=== PATIENT | female | born 1990 | race Caucasian/White ===

== ENCOUNTER 2017-09-09 00:36 | Emergency (ER) | payer BC ==
[2017-09-09] MEDS ORDERED: DOCUSATE ORAL SOLN 100 MG/10 ML CUP PO STA (00:47)
--- NOTE | 2017-09-09 00:55 | ED ---
General Adult HPI - General Chief complaint: ENT Stated complaint: FB in Ear Time Seen by Provider: 09/09/17 00:44 Source: patient, RN notes reviewed Mode of arrival: ambulatory Limitations: no limitations - History of Present Illness Initial comments: 27-year-old female presents emergency department with concern there may be a Q- tip in her left ear. She's had it for the past few days she went to her doctor and they were unable to see it. She states she made an appointment with Dr. Velasquez the right ear with taken out of her ears however she cannot tolerate this irritation to Q-tip in her ear and she needs it out. She denies any fever chills cough cold Raynaud's or any other symptoms. She denies any pain. She states irritated.Patient denies any recent fever, chills, shortness of breath, chest pain, back pain, abdominal pain, nausea vomiting, numbness or tingling, dysuria or hematuria, constipation or diarrhea, headaches or visual changes, or any other current symptoms. - Related Data Allergies Allergy/AdvReac Type Severity Reaction Status Date / Time No Known Allergies Allergy Verified 09/09/17 00:42 Review of Systems ROS Statement: Those systems with pertinent positive or pertinent negative responses have been documented in the HPI. ROS Other: All systems not noted in ROS Statement are negative. Past Medical History Past Medical History: No Reported History History of Any Multi-Drug Resistant Organisms: None Reported Past Surgical History: Tubal Ligation Additional Past Surgical History / Comment(s): . Past Psychological History: No Psychological Hx Reported Smoking Status: Current every day smoker Past Alcohol Use History: Occasional Past Drug Use History: None Reported General Exam Limitations: no limitations General appearance: alert, in no apparent distress Eye exam: Present: normal appearance, PERRL, EOMI. Absent: scleral icterus, conjunctival injection, periorbital swelling ENT exam: Present: normal exam, mucous membranes moist, normal external ear exam. Absent: TM's normal bilaterally (Unable to visualize due to bilateral serum impaction) Neck exam: Present: normal inspection. Absent: tenderness, meningismus, lymphadenopathy Respiratory exam: Present: normal lung sounds bilaterally. Absent: respiratory distress, wheezes, rales, rhonchi, stridor Cardiovascular Exam: Present: regular rate, normal rhythm, normal heart sounds. Absent: systolic murmur, diastolic murmur, rubs, gallop, clicks Neurological exam: Present: alert, oriented X3 Psychiatric exam: Present: normal affect, normal mood Skin exam: Present: warm, dry, intact, normal color. Absent: rash Course Vital Signs 09/09/17 00:40 Temperature 98.1 F Pulse Rate 104 H Respiratory 16 Rate Blood Pressure 141/89 O2 Sat by Pulse 100 Oximetry Procedures - Ear Wax Removal Left Ear Cerumenolytic Used: [place] Ear Canal Irrigated by: Ear Canal Irrigated With: ear cloth shearer device Ear Canal(s) Curetted: plastic scoops, other (q-tip end was removed) Results: Re-examined: some cerumen remains TM Visible: TM(s) intact, normal appearance Ear Canal: atraumatic Patient Tolerated Procedure: well Complications: no problems Medical Decision Making - Medical Decision Making 27-year-old female presents emergency department chief complaint of bilateral serum impaction. At this time the impaction was removed from the left ear partially the Q-tip head was removed and the patient did not want to extend the procedure further. She states that she'll follow up with ENT for this. This time we discussed discharge follow-up return. Questions. Patient stated that she understood and is negative plan. Discharged. Disposition Clinical Impression: Foreign body in left ear, Bilateral impacted cerumen Disposition: HOME SELF-CARE Condition: Stable Instructions: Ear Foreign Body (ED) Additional Instructions: Please use medication as discussed. Please follow up with family doctor if symptoms have not improved over the next two days. Please return to the emergency room if your symptoms increase or worsen or for any other concerns. Referrals: David Woods MD [Primary Care Provider] - 1-2 days Time of Disposition: 01:53
[2017-09-09 02:22] VITALS: BP 120/83; PULSE 74; RESP 18; TEMP 97.1
== END 2017-09-09 02:21 | disposition home or self-care (01) ==
LOC: EC 00:36
DX: T16.2XXA Foreign body in left ear, initial encounter (principal); H61.23 Impacted cerumen, bilateral; F17.200 Nicotine dependence, unspecified, uncomplicated
CPT/HCPCS: 69209; 99282

== ENCOUNTER 2018-11-13 19:19 | Emergency (ER) | payer BC ==
[2018-11-13 19:48] VITALS: TEMP 98.6
[2018-11-13 20:28] LABS: Appearance,Urine Cloudy (Clear); Bacteria,Urine Moderate /hpf; Bilirubin,Urine Negative (Negative); Blood,Urine Negative (Negative); Color,Urine Yellow; Glucose,Urine (UA) Negative (Negative); Ketones,Urine Negative (Negative); Leukocyte Esterase,Urine Large (Negative); Mucus,Urine Occasional /hpf; Nitrite,Urine Positive (Negative); PH, Urine 5.5 (5.0-8.0); Protein,Urine Trace (Negative); RBC,Urine 9 /hpf (0-5); Specific Gravity,Urine 1.018 (1.001-1.035); Squamous Epithelial Cell,Urine 18 /hpf (0-4); Urobilinogen,Urine <2.0 mg/dL (<2.0); WBC,Urine 10 /hpf (0-5)
[2018-11-13 21:20] LABS: Basophils % (A) 0 %; Eosinophils # (A) 0.2 k/uL (0-0.7); Eosinophils % (A) 2 %; HCT 43.2 % (34.0-46.0); HGB 14.2 gm/dL (11.4-16.0); Lymphocytes # (A) 2.4 k/uL (1.0-4.8); Lymphocytes % (A) 21 %; MCH 28.6 pg (25.0-35.0); MCHC 32.8 g/dL (31.0-37.0); Monocytes # (A) 0.4 k/uL (0-1.0); Monocytes % (A) 3 %; Neutrophils # (A) 8.2 k/uL (1.3-7.7); Neutrophils % (A) 72 %; Platelet Count 222 k/uL (150-450); RBC 4.96 m/uL (3.80-5.40); WBC 11.3 k/uL (3.8-10.6)
[2018-11-13 21:28] LABS: ALT 32 U/L (9-52); AST 19 U/L (14-36); Albumin 4.1 g/dL (3.5-5.0); Alkaline Phosphatase 55 U/L (38-126); Anion Gap 7 mmol/L; Blood Urea Nitrogen 11 mg/dL (7-17); Calcium 9.5 mg/dL (8.4-10.2); Carbon Dioxide 24 mmol/L (22-30); Chloride 107 mmol/L (98-107); Glucose 80 mg/dL (74-99); Potassium 4.3 mmol/L (3.5-5.1); Sodium 138 mmol/L (137-145); Total Bilirubin 0.4 mg/dL (0.2-1.3); Total Protein 6.8 g/dL (6.3-8.2)
--- NOTE | 2018-11-13 22:09 | ED ---
General Adult HPI - General Chief complaint: Abdominal Pain Stated complaint: 7 weeks & vomiting Time Seen by Provider: 11/13/18 22:09 Source: patient Mode of arrival: ambulatory Limitations: no limitations - Related Data Home Medications Medication Instructions Recorded Confirmed Cef-Qnbu-Ugwcp Acid 1 cap PO DAILY 11/13/18 11/13/18 [-U Capsule (formulary)] Previous Rx's Medication Instructions Recorded Cephalexin [Keflex] 500 mg PO Q6HR 3 Days #12 cap 11/13/18 Allergies Allergy/AdvReac Type Severity Reaction Status Date / Time No Known Allergies Allergy Verified 11/13/18 20:42 Review of Systems ROS Statement: Those systems with pertinent positive or pertinent negative responses have been documented in the HPI. ROS Other: All systems not noted in ROS Statement are negative. Past Medical History Past Medical History: No Reported History History of Any Multi-Drug Resistant Organisms: None Reported Past Surgical History: Tubal Ligation Additional Past Surgical History / Comment(s): . Past Psychological History: No Psychological Hx Reported Smoking Status: Current every day smoker Past Alcohol Use History: Occasional Past Drug Use History: None Reported General Exam Limitations: no limitations Course Vital Signs 11/13/18 11/13/18 19:44 22:35 Temperature 98.6 F 98.6 F Pulse Rate 78 70 Respiratory 20 18 Rate Blood Pressure 147/81 103/65 O2 Sat by Pulse 99 96 Oximetry Medical Decision Making - Medical Decision Making Dictation was produced using [employer] dictation software. please excuse any grammatical, word or spelling errors. Chief Complaint: 28-year-old female presents with nausea vomiting. She is allegedly 6 weeks . History of Present Illness: Patient is a 28-year-old female. She denies any medical problems. She states she had some nausea vomiting and some abdominal cramping earlier today. She was concerned for . Computed emergency department. Patient is asymptomatic at this time. She feels well. Patient isn't denies any vomiting however she still feels slightly nauseous. Patient does have an established [employer]NA[employer]. She has an appointment on the . Patient had pregnancies in the past she had abortions for them. Denies any vaginal discharge or vaginal bleeding The ROS documented in this emergency department record has been reviewed and confirmed by me. Those systems with pertinent positive or negative responses have been documented in the HPI. All other systems are other negative and/or noncontributory. PHYSICAL EXAM: General Impression: Alert and oriented x3, not in acute distress HEENT: Normocephalic atraumatic, extra-ocular movements intact, pupils equal and reactive to light bilaterally, mucous membranes moist. Cardiovascular: Heart regular rate and rhythm, S1&S2 audible, no murmurs, rubs or gallops Chest: Lungs clear to auscultation bilaterally, no rhonchi, no wheeze, no rales Abdomen: Bowel sounds present, abdomen soft, non-tender, non-distended, no organomegaly Musculoskeletal: Pulses present and equal in all extremities, no peripheral edema Motor: Power 5/5 bilaterally, no focal deficits noted Neurological: CN II-XII grossly intact, no focal motor or sensory deficits noted Skin: Intact with no visualized rashes Psych: Normal affect and mood ED course: 28-year-old female presents with nausea vomiting and abdominal cramping. She states her symptoms all spontaneously. Patient is asymptomatic at this time. Vital signs upon arrival are within acceptable limits. Patient well-appearing. Physical examination is benign. Patient refusing pelvic exam. Laboratory evaluation obtained showing no acute processes. Patient however does have some local urea on her urinalysis. Patient be given antibiotics. Labs unremarkable. Transvaginal ultrasound is negative. 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 - Lab Data Result diagrams: 11/13/18 20:58 11/13/18 20:58 Lab Results 11/13/18 11/13/18 11/13/18 Range/Units 20:09 20:58 20:58 WBC 11.3 H (3.8-10.6) k/uL RBC 4.96 (3.80-5.40) m/uL Hgb 14.2 (11.4-16.0) gm/dL Hct 43.2 (34.0-46.0) % MCV 87.0 (80.0-100.0) fL MCH 28.6 (25.0-35.0) pg MCHC 32.8 (31.0-37.0) g/dL RDW 14.0 (11.5-15.5) % Plt Count 222 (150-450) k/uL Neutrophils % 72 % Lymphocytes % 21 % Monocytes % 3 % Eosinophils % 2 % Basophils % 0 % Neutrophils # 8.2 H (1.3-7.7) k/uL Lymphocytes # 2.4 (1.0-4.8) k/uL Monocytes # 0.4 (0-1.0) k/uL Eosinophils # 0.2 (0-0.7) k/uL Basophils # 0.0 (0-0.2) k/uL Sodium 138 (137-145) mmol/L Potassium 4.3 (3.5-5.1) mmol/L Chloride 107 (98-107) mmol/L Carbon Dioxide 24 (22-30) mmol/L Anion Gap 7 mmol/L BUN 11 (7-17) mg/dL Creatinine 0.88 (0.52-1.04) mg/dL Est GFR (CKD-EPI)AfAm >90 (>60 ml/min/1.73 sqM) Est GFR (CKD-EPI)NonAf >90 (>60 ml/min/1.73 sqM) Glucose 80 (74-99) mg/dL Calcium 9.5 (8.4-10.2) mg/dL Total Bilirubin 0.4 (0.2-1.3) mg/dL AST 19 (14-36) U/L ALT 32 (9-52) U/L Alkaline Phosphatase 55 (38-126) U/L Total Protein 6.8 (6.3-8.2) g/dL Albumin 4.1 (3.5-5.0) g/dL HCG, Quant 73919.2 mIU/mL Urine Color Yellow Urine Appearance Cloudy H (Clear) Urine pH 5.5 (5.0-8.0) Ur Specific [place] 1.018 (1.001-1.035) Urine Protein Trace H (Negative) Urine Glucose (UA) Negative (Negative) Urine Ketones Negative (Negative) Urine Blood Negative (Negative) Urine Nitrite Positive H (Negative) Urine Bilirubin Negative (Negative) Urine Urobilinogen <2.0 (<2.0) mg/dL Ur Leukocyte Esterase Large H (Negative) Urine RBC 9 H (0-5) /hpf Urine WBC 10 H (0-5) /hpf Ur Squamous Epith Cells 18 H (0-4) /hpf Urine Bacteria Moderate H (None) /hpf Urine Mucus Occasional H (None) /hpf Disposition Clinical Impression: Pelvic pain affecting Disposition: HOME SELF-CARE Condition: Good Prescriptions: Cephalexin [Keflex] 500 mg PO Q6HR 3 Days #12 cap Is patient prescribed a controlled substance at d/c from ED?: No Referrals: David Woods MD [Primary Care Provider] - 1-2 days Time of Disposition: 23:02
[2018-11-13 22:13] LABS: HCG,Quantitative Serum 66102.2 mIU/mL
[2018-11-13 22:37] VITALS: BP 103/65; PULSE 70; RESP 18
--- NOTE | 2018-11-13 22:42 | US ---
EXAMINATION TYPE: Transabdominal DATE OF EXAM: 01/24/18 COMPARISON: NONE CLINICAL HISTORY: Pain. Nausea EXAM PERFORMED: Transabdominal (TA) EXAM MEASUREMENTS: GESTATIONAL AGE / DATING Physician Established: Not yet established ( weeks/ Dates by LMP: (6 weeks/4 days) EDC: 07/05/2019 Dates by First Scan: No previous this is first scan Dates by Current Scan for: (6 weeks/4 days) EDC: 07/05/2019 MATERNAL ANATOMY Uterus: 9.9 x 5.2 x 4.9 cm Left Ovary: 3.7 x 2.1 x 3.0 cm Post CDS / Adnexa: wnl Presence of free fluid: no Presence of corpus luteal cyst: Yes left ovary. Presence of subchorionic bleed: No GESTATION / SURVEY CRL: 0.71cm (6 weeks/4 days) Yolk Sac (normal less than 6mm): 4mm Heart Rate: 138 bpm Rhythm: Normal IUP: Viable IUP Beta HcG (if available): Not available at this time Viable IUP 6w4d SHAWANDA 07/05/2019 HR 138 BPM IMPRESSION: No complicating process seen. The ultrasound gestational age is 6 weeks and 4 days.
== END 2018-11-13 23:22 | disposition home or self-care (01) ==
LOC: EC 19:19
DX: O26.891 Other specified pregnancy related conditions, first trimester (principal); R10.2 Pelvic and perineal pain; O21.9 Vomiting of pregnancy, unspecified; O99.331 Smoking (tobacco) complicating pregnancy, first trimester; F17.200 Nicotine dependence, unspecified, uncomplicated; Z3A.01 Less than 8 weeks gestation of pregnancy
CPT/HCPCS: 36415; 76801; 80053; 81001; 84702; 85025; 87086; 99284

== ENCOUNTER → 2019-02-12 | Outpatient (CLI) | payer BC ==
[2019-02-13 08:32] LABS: Alpha Fetoprotein (M.O.M) 1.41; B-HCG (M.O.M.) 1.65; Gestational Age (days) 4; Human Chorionic Gonadotropin 23.2 IU/mL; Maternal Age at EDD (Yrs) 29; Smoker No; Unconjugated Estriol (M.O.M.) 1.99
== END | disposition home or self-care (01) ==
LOC: LABWHC1 10:38
PROVIDERS: ATTEND Obstetrics & Gynecology
DX: Z34.82 Encounter for supervision of other normal pregnancy, second trimester (principal)
CPT/HCPCS: 36415; 82105; 82677; 84702; 86336

== ENCOUNTER 2019-06-08 11:26 | Outpatient (CLI) | payer BC ==
[2019-06-08 12:05] VITALS: PULSE 99; RESP 16; TEMP 97
--- NOTE | 2019-06-13 16:47 | P.MSEPDOC ---
Presenting Problems - Arrival Data Date of Arrival on Unit: 06/08/19 Time of Arrival on Unit: 12:03 Mode of Transport: Ambulatory - Complaint OB-Reason for Admission/Chief Complaint: Rule Out PROM Medical History - Information : 3 Para: 0 Term: 0 : 0 Abortions: Spontaneous or Elective: 2 Number of Living Children: 0 - Gestational Age Gestational Age by SHAWANDA (wks/days): 36 Weeks and 1 Days - History Complications: GDM Review of Systems - Review of Systems Constitutional: No problems Breast: No problems ENT: No problems Cardiovascular: No problems Respiratory: No problems Gastrointestinal: No problems Genitourinary: No problems Musculoskeletal: No problems Neurological: No problems Skin: No problems Vital Signs - Temperature Temperature: 97.0 F Temperature Source: Oral - Pulse Supine Pulse Rate: 99 Pulse Assessment Method: Automatic Cuff - Respirations Respiratory Rate: 16 Oxygen Delivery Method: Room Air Medical Screen Scoring (Pre) - Cervical Exam Dilation: 1-3 cm = 1 Effacement: More than 50% = 2 - Uterine Contractions Frequency: N/A Duration: N/A Intensity: N/A - Maternal Vital Signs Maternal Temperature: N/A Signs of Preeclampsia: N/A Maternal Respirations: N/A - Maternal Trauma Maternal Trauma: N/A - Assessment - Baby A Baseline FHR: 130 Heart Rate - NICHD Category: Category I (Normal) = 0 NST: Reactive Position: N/A Station: N/A - Total Score - Baby A Total Score - Baby A: 3 - Total Score - Baby B Total Score - Baby B: 3 - Total Score - Baby C Total Score - Baby C: 3 - Level of Risk - Baby A Level of Risk - Baby A: Low (0-5) - Level of Risk - Baby B Level of Risk - Baby B: Low (0-5) - Level of Risk - Baby C Level of Risk - Baby C: Low (0-5) Physician Notification (Pre) - Physician Notified Physician Notified Date: 06/08/19 Physician Notified Time: 12:04 Physician/Practitioner Notifed:: DR JAMES New Order Received: Yes - Notification Comment Comment: PT TO DISCHARGE HOME Disposition - Disposition OB Disposition: Discharge to home Discharge Date: 06/08/19 Discharge Time: 12:05 I agree with the RN Medical Screening Exam: Yes Risk & Benefit of care provided described in d/c instruction: Yes Diagnosis: FALSE LABOR BEFORE 37 COMPLETED WEEKS OF GEST, THIRD TRI
== END 2019-06-08 12:20 | disposition home or self-care (01) ==
LOC: FBPOP 11:26
PROVIDERS: ATTEND Obstetrics & Gynecology
DX: O47.03 False labor before 37 completed weeks of gestation, third trimester (principal); Z3A.36 36 weeks gestation of pregnancy
CPT/HCPCS: 59025; 84112; 99213

== ENCOUNTER 2019-06-08 22:12 | Inpatient (IN) | payer BC ==
[2019-06-08] MEDS ORDERED: CITRIC ACID-SODIUM CITRATE 15 ML CUP PO ONE (22:58)
[2019-06-08] MEDS ORDERED: LACTATED RINGERS 1,000 ML IV ONE (22:58)
[2019-06-08] MEDS ORDERED: ceFAZolin 3 GM in SODIUM CHLORIDE 0.9% 100 ML IVPB ONE (22:58)
[2019-06-08] MEDS: LACTATED RINGERS 1,000 ML IV SCH (23:17)
[2019-06-08 23:21] LABS: Glucose,Whole Blood 91 mg/dL (75-99)
[2019-06-08 23:30] LABS: Basophils % (A) 0 %; Eosinophils # (A) 0.1 k/uL (0-0.7); Eosinophils % (A) 1 %; HGB 13.3 gm/dL (11.4-16.0); Lymphocytes # (A) 2.7 k/uL (1.0-4.8); Lymphocytes % (A) 26 %; MCH 29.3 pg (25.0-35.0); MCHC 33.3 g/dL (31.0-37.0); MCV 87.9 fL (80.0-100.0); Mean Platelet Volume 7.3; Monocytes # (A) 0.4 k/uL (0-1.0); Monocytes % (A) 4 %; Neutrophils # (A) 7.1 k/uL (1.3-7.7); Neutrophils % (A) 68 %; Platelet Count 269 k/uL (150-450); RBC 4.54 m/uL (3.80-5.40); RDW 13.4 % (11.5-15.5); WBC 10.4 k/uL (3.8-10.6)
[2019-06-08] MEDS ORDERED: KETOROLAC 30 MG/ML 1 ML VIAL ONE (23:54)
[2019-06-08] MEDS ORDERED: MORPHINE SULFATE (PF) 0.3 MG/0.3 ML SYR ONE (23:54)
[2019-06-08] MEDS ORDERED: OXYTOCIN 10 UNIT/ML 1 ML VIAL ONE (23:54)
[2019-06-08] MEDS ORDERED: NALBUPHINE 10 MG/ML (1 ML AMP) ONE (23:54)
[2019-06-08] MEDS ORDERED: ONDANSETRON 4 MG/2 ML VIAL ONE (23:54)
[2019-06-09 02:30] VITALS: BMI 40.3
[2019-06-09] MEDS ORDERED: diphenhydrAMINE 25 MG CAP PO PRN (04:10)
[2019-06-09] MEDS ORDERED: ZOLPIDEM 5 MG TAB PO PRN (04:10)
[2019-06-09] MEDS ORDERED: KETOROLAC 30 MG/ML 1 ML VIAL IVP PRN (04:10)
[2019-06-09] MEDS ORDERED: diphenhydrAMINE 50 MG CAP PO PRN (04:10)
[2019-06-09] MEDS ORDERED: diphenhydrAMINE 50 MG/ML 1 ML VIAL IVP PRN ×2 (04:10)
[2019-06-09] MEDS ORDERED: MEASLES-MUMPS-RUBELLA VACC/PF 12,500 UNIT/0.5 ML VIAL SQ ONE (04:10)
[2019-06-09] MEDS ORDERED: METOCLOPRAMIDE 5 MG/ML 2 ML VIAL IVP PRN (04:10)
[2019-06-09] MEDS ORDERED: ONDANSETRON 4 MG/2 ML VIAL IVP PRN (04:10)
[2019-06-09] MEDS ORDERED: NALOXONE 0.4 MG/ML 1 ML VIAL IV PRN (04:10)
[2019-06-09] MEDS ORDERED: ACETAMINOPHEN TAB 325 MG TAB PO PRN (04:10)
[2019-06-09] MEDS ORDERED: OXYTOCIN 20 UNITS/1000 ML NS 1,000 ML IV SCH (04:15)
[2019-06-09] MEDS: LACTATED RINGERS 1,000 ML IV SCH ×3 (07:50→20:52)
--- NOTE | 2019-06-09 10:14 | P.HPOB ---
History of Present Illness H&P Date: 06/09/19 Chief Complaint: Spontaneous rupture of membranes 29-year-old presents at 36 weeks and 3 days complaining of spontaneous rupture of membranes. Amnio sure was positive. She is maryam irregularly. She has gestational diabetes, diet controlled. Weight of the baby is over the 90th percentile and Dr. Oliveira had a conversation with the patient and with myself that this patient needed a section due to macrosomia. Review of Systems All systems: negative Constitutional: Denies chills, Denies fever Eyes: denies blurred vision, denies pain Ears, nose, mouth and throat: Denies headache, Denies sore throat Cardiovascular: Denies chest pain, Denies shortness of breath Respiratory: Denies cough Gastrointestinal: Denies abdominal pain, Denies diarrhea, Denies nausea, Denies vomiting Genitourinary: Denies dysuria, Denies hematuria Musculoskeletal: Denies myalgias Integumentary: Denies pruritus, Denies rash Neurological: Denies numbness, Denies weakness Psychiatric: Denies anxiety, Denies depression Endocrine: Denies fatigue, Denies weight change Past Medical History Past Medical History: No Reported History Additional Past Medical History / Comment(s): Obstetric history: She's had one termination and one spontaneous . This is her third . She's had care with Dr. Oliveira. Blood type is O-, antibodies negative, rub nahomi nonimmune, hepatitis B-, HIV negative, RPR nonreactive, GBS unknown. Her gestational diabetes has been controlled with diet. She's been seeing maternal medicine and getting regular ultrasounds and NSTs. History of Any Multi-Drug Resistant Organisms: None Reported Past Surgical History: Tubal Ligation Additional Past Surgical History / Comment(s): . tubes in ears Past Anesthesia/Blood Transfusion Reactions: No Reported Reaction Past Psychological History: No Psychological Hx Reported Smoking Status: Never smoker Past Alcohol Use History: Occasional Past Drug Use History: None Reported - Past Family History Mother Family Medical History: Thyroid Disorder Medications and Allergies Home Medications Medication Instructions Recorded Confirmed Type Kvb-Cqlp-Xjrbp Acid 1 cap PO DAILY 11/13/18 06/08/19 History [-U Capsule (formulary)] Allergies Allergy/AdvReac Type Severity Reaction Status Date / Time No Known Allergies Allergy Verified 06/08/19 22:23 Exam Osteopathic Statement: *. No significant issues noted on an osteopathic structural exam other than those noted in the History and Physical/Consult. Vital Signs Temp Pulse Resp BP Pulse Ox 06/09/19 03:10 98.2 F 59 L 16 100/56 98 06/09/19 02:40 59 L 16 105/62 99 06/09/19 02:10 62 16 100/59 98 06/09/19 01:55 62 16 105/57 96 06/09/19 01:40 62 16 108/56 99 06/09/19 01:25 63 16 111/53 98 06/09/19 01:10 71 16 109/56 97 06/09/19 00:55 98.4 F 77 16 106/54 99 06/08/19 23:14 98.3 F 89 16 141/73 98 06/08/19 22:25 98.3 F 89 16 141/73 98 06/08/19 22:22 98.3 F 89 16 141/73 97 Intake and Output 06/08/19 06/09/19 06/09/19 22:59 06:59 14:59 Output Total 500 Balance -500 Output: Estimated Blood Loss 500 Other: Voiding Method Indwelling Catheter Weight 127.459 kg Heart: Regular rate and rhythm Lungs: Clear to auscultation bilaterally Abdomen: Soft, nontender Extremities: Negative Homans sign Results Result Diagrams: 06/08/19 22:52 Assessment and Plan (1) macrosomia Current Visit: Yes Status: Acute Code(s): O36.60X0 - MATERNAL CARE FOR EXCESS GROWTH, UNSP TRIMESTER, UNSP SNOMED Code(s): 46991677 (2) Gestational diabetes Current Visit: Yes Status: Acute Code(s): O24.419 - GESTATIONAL DIABETES MELLITUS IN , UNSP CONTROL SNOMED Code(s): 15315623 (3) Spontaneous rupture of membranes Current Visit: Yes Status: Acute Code(s): NKK2760 - SNOMED Code(s): 046950961 Plan: 1. primary low transverse
--- NOTE | 2019-06-09 10:17 | P.OP ---
Date of Procedure: 06/09/19 Preoperative Diagnosis: 1. at 36 and 3 2. Spontaneous rupture of membranes 3. macrosomia 4. Gestational diabetes Postoperative Diagnosis: 1. at 36 and 3 2. Spontaneous rupture of membranes 3. macrosomia 4. Gestational diabetes Procedure(s) Performed: Primary low transverse Anesthesia: spinal Surgeon: [employer]: Michaelle Reyes Estimated Blood Loss (ml): 600 IV fluids (ml): 600 Urine output (ml): 200 Pathology: other (Placenta) Condition: stable Disposition: floor Operative Findings: Viable male, Apgars 9, 9, weight 7 lbs. 15 oz. normal uterus, tubes, ovaries. Description of Procedure: Patient was taken to the operating room where spinal anesthesia was found be adequate. She was prepped and draped in normal sterile fashion in dorsal supine position with a leftward tilt. Pfannenstiel skin incision was made the scalpel and carried through to the underlying layer of fascia with the scalpel. Fascia was incised in midline and carried bilaterally with the Carmichael scissors. The superior aspect of the fascial incision was grasped with [place] clamps elevated and the underlying rectus muscles dissected off with the Carmichael's. Attention was then turned to inferior aspect of same incision which in a similar fashion was grasped tented up and the underlying rectus muscles dissected off with the Carmichael's. The rectus muscles were the midline and the peritoneum was identified tented up and entered sharply with the scalpel. The incision was extended superiorly and inferiorly with good visualization of the bladder. The bladder blade was inserted and the vesicouterine peritoneum was incised the Metzenbaums then carried bilaterally and bladder flap created digitally. A low transverse incision was then made on the uterus with the scalpel. This was carried bilaterally and digital manner. 's head delivered atraumatically, nose and mouth bulb suctioned, cord clamped and cut, handed off to waiting nurses. Apgars 9,9, weight 7 lbs. 15oz. Placenta delivered manually, intact with three-vessel cord. The uterus is exteriorized and cleared of all clots and debris. The uterine incision was closed with 0 Vicryl in a running locked fashion. Second layer of the same sutures used in imbricating fashion to obtain excellent hemostasis. Bladder flap was then reapproximated using 2-0 Tyrel ryl in a running fashion. Both ovaries and tubes appeared normal. The uterus was placed back into the abdomen. The peritoneum was reapproximated using 2-0 Vicryl in a running fashion. The fascia was reapproximated using 0 Vicryl in a running fashion. The subcutaneous tissues closed with 3-0 Vicryl running fashion. The skin was closed rhoda. Patient tolerated the procedure well, sponge and instrument counts were correct times 2 and she was taken to the recovery room in stable condition.
[2019-06-09 14:33] LABS: Hemoglobin A1C 5.2 % (4.0-6.0)
--- NOTE | 2019-06-09 19:25 | P.PN ---
Progress Note - Text Progress Note Date: 06/09/19 Postoperative day 1 status post section under spinal anesthesia, and i ntrathecal morphine given for postoperative analgesia, patient doing well, there is no anesthesia related complications, patient complaining some itching earlier today , the itching improved Patient had no headache, vital signs stable , Assessment and plan= postop day 1 status post , doing well there is no anesthesia related complication.
[2019-06-09] MEDS: SENNOSIDES-DOCUSATE SODIUM 1 EACH TAB PO SCH (20:52)
[2019-06-09] MEDS ORDERED: Rhogam IMMUNE GLOBULIN 1,500 UNIT/1 ML IM ONE (21:34)
[2019-06-10] MEDS: SENNOSIDES-DOCUSATE SODIUM 1 EACH TAB PO SCH ×3 (02:45→22:55)
[2019-06-10] MEDS: LACTATED RINGERS 1,000 ML IV SCH ×3 (02:45→02:57)
[2019-06-10] MEDS: IBUPROFEN 600 MG TAB PO PRN ×3 (04:08→16:53)
[2019-06-10 07:29] LABS: Basophils % (A) 0 %; Eosinophils # (A) 0.1 k/uL (0-0.7); Eosinophils % (A) 1 %; HGB 11.7 gm/dL (11.4-16.0); Lymphocytes % (A) 16 %; MCH 29.6 pg (25.0-35.0); MCHC 33.3 g/dL (31.0-37.0); Mean Platelet Volume 7.6; Monocytes # (A) 0.6 k/uL (0-1.0); Monocytes % (A) 5 %; Neutrophils # (A) 10.2 k/uL (1.3-7.7); Neutrophils % (A) 78 %; Platelet Count 262 k/uL (150-450); RBC 3.93 m/uL (3.80-5.40); RDW 14.5 % (11.5-15.5); WBC 13.1 k/uL (3.8-10.6)
--- NOTE | 2019-06-10 09:33 | P.PNOBGPC ---
Subjective - Subjective Principal diagnosis: Status post primary low transverse postop day #1 Interval history: Patient seen and examined. Denies nausea, vomiting, chest pain, shortness of breath or calf pain. Her pain is controlled with ibuprofen. She is voiding and ambulating without difficulty. She is passing flatus and tolerating regular diet. Patient reports: Reports appetite normal, Reports voiding normally, Reports pain well controlled, Reports ambulating normally [place]: doing well Objective - Vital Signs Latest vital signs: Vital Signs Temp Pulse Resp BP Pulse Ox 06/10/19 00:00 98.7 F 83 16 104/51 97 06/09/19 20:00 98.2 F 90 16 102/62 98 06/09/19 16:00 98.0 F 73 18 96/58 06/09/19 12:00 98.5 F 89 16 118/62 Intake and Output 06/09/19 06/10/19 06/10/19 22:59 06:59 14:59 Output Total 800 Balance -800 Output: Urine 800 Other: # Voids 1 2 - Exam Lungs: bilateral: normal Chest: Normal S1, Normal S2 Extremities: Present: normal Abdomen: Present: normal appearance, soft. Absent: distention, tenderness Incision: Present: normal, dry, intact Uterus: Present: normal, firm - Labs Labs: Abnormal Lab Results - Last 24 Hours (Table) 06/10/19 Range/Units 06:23 WBC 13.1 H (3.8-10.6) k/uL Neutrophils # 10.2 H (1.3-7.7) k/uL Assessment and Plan (1) macrosomia Current Visit: Yes Status: Resolved Code(s): O36.60X0 - MATERNAL CARE FOR EXCESS GROWTH, UNSP TRIMESTER, UNSP SNOMED Code(s): 92130460 (2) Gestational diabetes Current Visit: Yes Status: Resolved Code(s): O24.419 - GESTATIONAL DIABETES MELLITUS IN , UNSP CONTROL SNOMED Code(s): 32123515 (3) Spontaneous rupture of membranes Current Visit: Yes Status: Resolved Code(s): ESI3120 - SNOMED Code(s): 291429890 (4) Status post primary low transverse section Current Visit: Yes Status: Acute Code(s): Z98.891 - HISTORY OF UTERINE SCAR FROM PREVIOUS SURGERY SNOMED Code(s): 255126073 Plan: 1. Increase ambulation 2. Continue postoperative care
--- NOTE | 2019-06-10 22:05 | P.MSEPDOC ---
Presenting Problems - Arrival Data Date of Arrival on Unit: 06/08/19 Time of Arrival on Unit: 22:46 Mode of Transport: Bed - Complaint OB-Reason for Admission/Chief Complaint: Rule Out PROM Comment: 2129 clear Medical History - Information : 3 Para: 0 Term: 0 : 0 Abortions: Spontaneous or Elective: 0 Number of Living Children: 0 - Gestational Age Gestational Age by SHAWANDA (wks/days): 36 Weeks and 2 Days - History Complications: GDM Review of Systems - Review of Systems Constitutional: No problems Breast: No problems ENT: No problems Cardiovascular: No problems Respiratory: No problems Gastrointestinal: No problems Genitourinary: No problems Musculoskeletal: No problems Neurological: No problems Skin: No problems Vital Signs - Temperature Temperature: 98.3 F Temperature Source: Oral - Pulse Right Brachial Pulse Rate: 89 Pulse Assessment Method: Automatic Cuff - Respirations Respiratory Rate: 18 Oxygen Delivery Method: Room Air O2 Sat by Pulse Oximetry: 98 - Blood Pressure Right Arm Blood Pressure: 107/61 Blood Pressure Mean: 76 Blood Pressure Source: Automatic Cuff Medical Screen Scoring (Pre) - Cervical Exam Dilation: 1-3 cm = 1 Effacement: More than 50% = 2 Membranes: Ruptured = 3 - Uterine Contractions Frequency: > or = 36 weeks =2 Duration: > 40 seconds = 2 - Maternal Vital Signs Maternal Temperature: N/A Maternal Blood Pressure: N/A Signs of Preeclampsia: N/A Maternal Respirations: N/A - Maternal Trauma Maternal Trauma: N/A - Assessment - Baby A Baseline FHR: 135 Heart Rate - NICHD Category: Category I (Normal) = 0 NST: Reactive - Total Score - Baby A Total Score - Baby A: 10 - Total Score - Baby B Total Score - Baby B: 10 - Total Score - Baby C Total Score - Baby C: 10 - Level of Risk - Baby A Level of Risk - Baby A: High (10+) - Level of Risk - Baby B Level of Risk - Baby B: High (10+) - Level of Risk - Baby C Level of Risk - Baby C: High (10+) Physician Notification (Pre) - Physician Notified Physician Notified Date: 06/08/19 Physician Notified Time: 22:52 Physician/Practitioner Notifed:: Dr Rodriguez New Order Received: Yes Disposition - Disposition OB Disposition: Admit, LDRP Suite I agree with the RN Medical Screening Exam: Yes Risk & Benefit of care provided described in d/c instruction: Yes Diagnosis: ENCOUNTER FOR FULL-TERM UNCOMPLICATED DELIVERY
[2019-06-11 00:21] VITALS: RESP 16
[2019-06-11] MEDS: IBUPROFEN 600 MG TAB PO PRN (01:38)
--- NOTE | 2019-06-11 08:51 | P.DS ---
Providers Date of admission: 06/08/19 22:46 Expected date of discharge: 06/11/19 Attending physician: Santhosh Ortiz Primary care physician: Stated None Hospital Course: Patient doing very well postop day 2. She is ambulating, voiding and tolerating her diet. She voices no complaints and is requesting discharge home today. Vital signs are stable and she is afebrile. Heart regular, lungs clear, extremities without pain. Abdomen soft and nontender. Positive bowel sounds are noted. She has had a bowel movement already. Incisions clean dry and intact. Assessment postop day 2. Plan discharged home follow up with me in 1 week. All of the discharge instructions reviewed and she is stable for discharge this time. Patient Condition at Discharge: Good Plan - Discharge Summary New Discharge Prescriptions: New Ibuprofen [Motrin] 600 mg PO Q6HR PRN #30 tab PRN Reason: Pain HYDROcodone/APAP 5-325MG [[place] 5-325] 1 tab PO Q4HR PRN #30 tab PRN Reason: Pain No Action Pkw-Qkce-Xebrw Acid [-U Capsule (formulary)] 1 cap PO DAILY Discharge Medication List Gbk-Uhfs-Zxzsu Acid [-U Capsule (formulary)] 1 cap PO DAILY 11/13/18 [History] HYDROcodone/APAP 5-325MG [[place] 5-325] 1 tab PO Q4HR PRN #30 tab 06/11/19 [Rx] Ibuprofen [Motrin] 600 mg PO Q6HR PRN #30 tab 06/11/19 [Rx] Follow up Appointment(s)/Referral(s): Santhosh Ortiz DO [Doctor of Osteopathic Medicine] - 1 Week Activity/Diet/Wound Care/Special Instructions: No heavy lifting, limit stairs and driving, and pelvic rest. If any high temperatures, heavy bleeding, or severe pain call my office Discharge Disposition: HOME SELF-CARE
[2019-06-11 09:10] VITALS: BP 112/55; PULSE 72; TEMP 97.9
== END 2019-06-11 10:45 | disposition home or self-care (01) | DRG 788 ==
LOC: FBPOP 22:12 → 4FBP 22:46
PROVIDERS: ADMIT Obstetrics & Gynecology; ATTEND Obstetrics & Gynecology
PROC: 10D00Z1 Extraction of Products of Conception, Low, Open Approach (ICD-10-PCS; principal; 2019-06-09)
DX: O36.63X0 Maternal care for excessive fetal growth, third trimester, not applicable or unspecified (principal); O24.420 Gestational diabetes mellitus in childbirth, diet controlled; O99.72 Diseases of the skin and subcutaneous tissue complicating childbirth; L29.9 Pruritus, unspecified; Z37.0 Single live birth; Z3A.36 36 weeks gestation of pregnancy; Z83.49 Family history of other endocrine, nutritional and metabolic diseases
CPT/HCPCS: 59025; 83036; 84112; 85025; 85461; 86850; 86870; 86880; 86900; 86901; 88307; 90471; 90707; 99213

== ENCOUNTER 2019-10-05 12:09 | Emergency (ER) | payer BC ==
[2019-10-05 12:21] VITALS: TEMP 98.2
[2019-10-05] MEDS ORDERED: ceFAZolin 1,000 MG VIAL (IM USE) IM STA (12:43)
[2019-10-05] MEDS ORDERED: LIDOCAINE 1% INJ 10MG/ML (20 ML MDV) SQ ONE (12:43)
--- NOTE | 2019-10-05 14:49 | ED ---
General Adult HPI - General Chief complaint: Skin/Abscess/Foreign Body Stated complaint: Abscess on breast Time Seen by Provider: 10/05/19 12:28 Source: patient, RN notes reviewed, old records reviewed Mode of arrival: ambulatory Limitations: no limitations - History of Present Illness Initial comments: 29-year-old female presents today for evaluation for concerns for an abscess of her sternum and left breast. She stated medics breath. She reports that this started to complain over the past 24-48 hours. She reports she noticed a small cystlike boil within the past week. She states she did pick at it. Patient states that she has had no fevers or chills. - Related Data Home Medications Medication Instructions Recorded Confirmed Rxr-Daes-Cxjfh Acid 1 cap PO DAILY 11/13/18 06/08/19 [-U Capsule (formulary)] Previous Rx's Medication Instructions Recorded HYDROcodone/APAP 5-325MG [[place] 1 tab PO Q4HR PRN #30 tab 06/11/19 5-325] Ibuprofen [Motrin] 600 mg PO Q6HR PRN #30 tab 06/11/19 Cephalexin [Keflex] 500 mg PO Q6HR #40 cap 10/05/19 HYDROcodone/APAP 5-325MG [[place] 1 tab PO Q6HR PRN #10 tab 10/05/19 5-325] Sulfamethox-Tmp 800-160Mg [Bactrim 2 tab PO Q12HR #40 tab 10/05/19 DS 800-160 mg] Allergies Allergy/AdvReac Type Severity Reaction Status Date / Time No Known Allergies Allergy Verified 10/05/19 12:21 Review of Systems ROS Statement: Those systems with pertinent positive or pertinent negative responses have been documented in the HPI. ROS Other: All systems not noted in ROS Statement are negative. Past Medical History Past Medical History: No Reported History Additional Past Medical History / Comment(s): Obstetric history: She's had one termination and one spontaneous . This is her third . She's had care with Dr. Oliveira. Blood type is O-, antibodies negative, rubella nonimmune, hepatitis B-, HIV negative, RPR nonreactive, GBS unknown. Her gestational diabetes has been controlled with diet. She's been seeing maternal medicine and getting regular ultrasounds and NSTs. History of Any Multi-Drug Resistant Organisms: None Reported Past Surgical History: Section, Tubal Ligation Additional Past Surgical History / Comment(s): . tubes in ears Past Anesthesia/Blood Transfusion Reactions: No Reported Reaction Past Psychological History: No Psychological Hx Reported Smoking Status: Current every day smoker Past Alcohol Use History: Occasional Past Drug Use History: None Reported - Past Family History Mother Family Medical History: Thyroid Disorder General Exam - General Exam Comments Initial Comments: 29 year female. Alert and oriented 3. Distress. Limitations: no limitations General appearance: alert, in no apparent distress Head exam: Present: atraumatic, normocephalic, normal inspection Eye exam: Present: normal appearance, PERRL, EOMI. Absent: scleral icterus, conjunctival injection, periorbital swelling ENT exam: Present: normal exam, mucous membranes moist Neck exam: Present: normal inspection. Absent: tenderness, meningismus, lymphadenopathy Respiratory exam: Present: normal lung sounds bilaterally, other (Patient has a 3 cm x 4 cm abscess over left sternum. Surrounding cellulitis erythema.). Absent: respiratory distress, wheezes, rales, rhonchi, stridor Cardiovascular Exam: Present: regular rate GI/Abdominal exam: Present: soft, normal bowel sounds. Absent: distended, tenderness, guarding, rebound, rigid Extremities exam: Present: normal inspection, full ROM, normal capillary refill. Absent: tenderness, pedal edema, joint swelling, calf tenderness Back exam: Present: normal inspection Neurological exam: Present: alert, oriented X3, CN II-XII intact Psychiatric exam: Present: normal affect, normal mood Skin exam: Present: warm, dry, intact, normal color. Absent: rash Course Vital Signs 10/05/19 10/05/19 12:19 14:58 Temperature 98.2 F 98.2 F Pulse Rate 84 70 Respiratory 16 18 Rate Blood Pressure 127/85 127/74 O2 Sat by Pulse 98 99 Oximetry Procedures - Incision & Drainage Indication: Abscess cellulitis Site: chest Size (cm): 4 Anesthetic Used: lidocaine 1% Amount (mLs): 5 I&D Cleaning Method: Iodine Sterile Field Used?: Yes Scalpel Used: #11 I&D Drainage Obtained: Pus, Blood Packing: Iodoform Culture Obtained?: Yes Patient Tolerated Procedure: well, no complications Medical Decision Making - Medical Decision Making 20-year-old female presents to the emergency department today with left breast and chest wall abscess. This was incised and drained. Approximately 10 mL of purulent fluid was removed. Patient had packing. Culture cleaned. Patient is given IM Kefzol. Discussed discharge the Patient with Keflex and Bactrim. Discussed following up with surgeon and have the packing re-drained. All questions are answered. Disposition Clinical Impression: Breast abscess Disposition: HOME SELF-CARE Condition: Good Instructions (If sedation given, give patient instructions): Abscess Incision and Drainage (ED), Abscess (ED) Additional Instructions: Please use medication as discussed. Patient advised to put warm compresses over the breast abscess. Follow-up with surgeon. Change dressing in 2 days. Take antibiotics as prescribed.Please follow up with family doctor if symptoms have not improved over the next two days. Please return to the emergency room if your symptoms increase or worsen or for any other concerns. Prescriptions: Sulfamethox-Tmp 800-160Mg [Bactrim DS 800-160 mg] 2 tab PO Q12HR #40 tab Cephalexin [Keflex] 500 mg PO Q6HR #40 cap HYDROcodone/APAP 5-325MG [[place] 5-325] 1 tab PO Q6HR PRN #10 tab PRN Reason: Pain Is patient prescribed a controlled substance at d/c from ED?: No Referrals: David Woods MD [Primary Care Provider] - 1-2 days Tomer Culp DO [Doctor of Osteopathic Medicine] - 1-2 days Time of Disposition: 14:45
[2019-10-05 15:03] VITALS: BP 127/74; PULSE 70; RESP 18
== END 2019-10-05 15:03 | disposition home or self-care (01) ==
LOC: EC 12:09
DX: N61.1 Abscess of the breast and nipple (principal); L02.213 Cutaneous abscess of chest wall; F17.200 Nicotine dependence, unspecified, uncomplicated
CPT/HCPCS: 87070; 87205; 87077; 87186; 99284; 96372; 10060; J0690; J2001

== ENCOUNTER 2023-06-22 06:00 | Inpatient (IN) | payer BC ==
[2023-06-22 06:28] LABS: Glucose,Whole Blood 93 mg/dL (70-110)
[2023-06-22] MEDS ORDERED: METHYLERGONOVINE 0.2 MG/ML 1 ML AMP IM PRN (07:09)
[2023-06-22] MEDS ORDERED: LIDOCAINE 0.5% (PF) 5 MG/ML (50 ML SDV) SQ PRN (07:09)
[2023-06-22] MEDS ORDERED: TERBUTALINE 1 MG/ML VIAL SQ PRN (07:09)
[2023-06-22] MEDS ORDERED: OXYTOCIN 10 UNIT/ML 1 ML VIAL IM PRN (07:09)
[2023-06-22] MEDS ORDERED: CARBOPROST TROMETHAMINE 250 MCG/ML 1 ML AMP IM PRN (07:09)
[2023-06-22] MEDS ORDERED: miSOPROStoL 200 MCG TAB PO PRN (07:09)
[2023-06-22] MEDS ORDERED: TRANEXAMIC 1,000 MG/100ML-NACL 1,000 MG in EMPTY BAG 1 BAG IV PRN (07:09)
[2023-06-22] MEDS: LACTATED RINGERS 1,000 ML IV SCH ×2 (07:15→17:01)
[2023-06-22] MEDS ORDERED: OXYTOCIN 30 UNITS/500 ML NS 30 UNIT in SALINE 1 500ML.BAG IV SCH (07:15)
--- NOTE | 2023-06-22 07:59 | P.HPOB ---
History of Present Illness H&P Date: 06/22/23 Chief Complaint: induction of labor 33 year old presents at 38 weeks 5 days for induction of labor due to some elevated BPs in office and hx GDM. Her cervix is 2-3/70/-2. She is maryam irregularly. heart tones 135 with moderate variability and reactive. Review of Systems All systems: negative Constitutional: Denies chills, Denies fever Eyes: denies blurred vision, denies pain Ears, nose, mouth and throat: Denies headache, Denies sore throat Cardiovascular: Denies chest pain, Denies shortness of breath Respiratory: Denies cough Gastrointestinal: Denies abdominal pain, Denies diarrhea, Denies nausea, Denies vomiting Genitourinary: Denies dysuria, Denies hematuria Musculoskeletal: Denies myalgias Integumentary: Denies pruritus, Denies rash Neurological: Denies numbness, Denies weakness Psychiatric: Denies anxiety, Denies depression Endocrine: Denies fatigue, Denies weight change Past Medical History Past Medical History: No Reported History History of Any Multi-Drug Resistant Organisms: None Reported Past Surgical History: Section Additional Past Surgical History / Comment(s): . tubes in ears Past Anesthesia/Blood Transfusion Reactions: No Reported Reaction Past Psychological History: No Psychological Hx Reported Smoking Status: Former smoker Past Alcohol Use History: Occasional Past Drug Use History: None Reported - Past Family History Mother History Unknown: Yes Family Medical History: Thyroid Disorder Medications and Allergies Home Medications Medication Instructions Recorded Confirmed Type Sra-Wahw-Tyfew Acid 1 cap PO DAILY 11/13/18 06/22/23 History [-U Capsule (formulary)] Allergies Allergy/AdvReac Type Severity Reaction Status Date / Time No Known Allergies Allergy Verified 10/05/19 12:21 Exam Osteopathic Statement: *. No significant issues noted on an osteopathic structural exam other than those noted in the History and Physical/Consult. Vital Signs Temp Pulse Resp BP Pulse Ox 06/22/23 06:56 97.1 F L 91 18 131/74 98 Intake and Output 06/21/23 06/22/23 06/22/23 22:59 06:59 14:59 Other: Weight 132.449 kg Heart: Regular rate and rhythm Lungs: Clear to auscultation bilaterally Abdomen: Soft, nontender Extremities: Negative Homans sign Assessment and Plan (1) Encounter for induction of labor Current Visit: Yes Status: Acute Code(s): Z34.90 - ENCNTR FOR SUPRVSN OF NORMAL , UNSP, UNSP TRIMESTER SNOMED Code(s): 648415963 (2) Status post primary low transverse section Current Visit: No Status: Acute Code(s): Z98.891 - HISTORY OF UTERINE SCAR FROM PREVIOUS SURGERY SNOMED Code(s): 936939048 Plan: 1. fully discussed risks and benefits of trial of labor after . pt expressed understanding 2. amnitomy and pitocin 3. continuous monitoring.
[2023-06-22 08:10] LABS: Basophils % (A) 0 %; Eosinophils # (A) 0.1 k/uL (0-0.7); Eosinophils % (A) 1 %; HCT 37.4 % (34.0-46.0); HGB 12.3 gm/dL (11.4-16.0); Lymphocytes # (A) 3.2 k/uL (1.0-4.8); Lymphocytes % (A) 29 %; MCH 27.6 pg (25.0-35.0); MCHC 32.9 g/dL (31.0-37.0); MCV 83.9 fL (80.0-100.0); Mean Platelet Volume 8.2; Monocytes # (A) 0.5 k/uL (0-1.0); Monocytes % (A) 4 %; Neutrophils # (A) 7.2 k/uL (1.3-7.7); Neutrophils % (A) 65 %; Platelet Count 351 k/uL (150-450); RBC 4.46 m/uL (3.80-5.40); RDW 13.4 % (11.5-15.5)
[2023-06-22] MEDS ORDERED: SODIUM CHLORIDE 0.9% 250 ML BAG ONE (09:13)
[2023-06-22] MEDS ORDERED: ROPIVACAINE 5 MG/ML 30 ML VIAL ONE (09:13)
[2023-06-22] MEDS ORDERED: fentaNYL (PF) 50 MCG/ML 5 ML AMP ONE (09:13)
[2023-06-22] MEDS ORDERED: ACETAMINOPHEN TAB 325 MG TAB PO PRN (16:09)
[2023-06-22] MEDS ORDERED: BENZOCAINE/MENTHOL SPRAY 1 GM/SPRAY AEROSOL TOPICAL PRN (16:09)
[2023-06-22] MEDS ORDERED: diphenhydrAMINE 25 MG CAP PO PRN (16:09)
[2023-06-22] MEDS ORDERED: IBUPROFEN 600 MG TAB PO PRN (16:09)
[2023-06-22] MEDS ORDERED: SIMETHICONE 80 MG CHEWABLE PO PRN (16:09)
[2023-06-22] MEDS ORDERED: ZOLPIDEM 5 MG TAB PO PRN (16:09)
[2023-06-22] MEDS ORDERED: diphenhydrAMINE 50 MG CAP PO PRN (16:09)
--- NOTE | 2023-06-22 17:02 | P.PROBDLV ---
Vaginal Delivery Note - . Vaginal Delivery Note: 33 year old presents at 38 weeks 5 days for induction of labor due to some elevated BPs in office and hx GDM. Her cervix is 2-3/70/-2. She is maryam irregularly. heart tones 135 with moderate variability and reactive. Pitocin was started and amniotomy performed at 7:37 AM clear fluid noted. When patient was uncomfortable she did get an epidural. Cervix was completely dilated at 1330. She pushed, and a viable female infant over intact perineum under epidural anesthesia at 1407. Head delivered OA, anterior shoulder delivered gentle downward guidance followed by posterior shoulder and rest of body. Nose and mouth bulb suctioned, cord clamped and cut, placed mother's abdomen. Apgars 9, 9, weight 8 lbs. 12 oz. Placenta delivered spontaneously, intact with three-vessel cord at 1409. Vagina, cervix, and perineum were inspected. Second-degree midline laceration was repaired with 3-0 Vicryl. Estimated blood loss 200 mL. Mother and baby in stable condition.
[2023-06-22] MEDS: SENNOSIDES-DOCUSATE SODIUM 1 EACH TAB PO SCH (22:03)
[2023-06-22] MEDS ORDERED: Rhogam IMMUNE GLOBULIN 1,500 UNIT/1 ML IM ONE (23:04)
[2023-06-23 06:12] LABS: Basophils % (A) 0 %; Eosinophils # (A) 0.1 k/uL (0-0.7); Eosinophils % (A) 1 %; HCT 28.8 % (34.0-46.0); Lymphocytes % (A) 26 %; MCH 28.1 pg (25.0-35.0); MCHC 33.5 g/dL (31.0-37.0); MCV 83.9 fL (80.0-100.0); Monocytes # (A) 0.5 k/uL (0-1.0); Monocytes % (A) 4 %; Neutrophils # (A) 7.7 k/uL (1.3-7.7); Neutrophils % (A) 68 %; Platelet Count 243 k/uL (150-450); RBC 3.44 m/uL (3.80-5.40); RDW 13.6 % (11.5-15.5); WBC 11.4 k/uL (3.8-10.6)
[2023-06-23 06:16] LABS: HGB 9.7 gm/dL (11.4-16.0)
--- NOTE | 2023-06-23 07:57 | P.DS ---
Providers Date of admission: 06/22/23 06:05 Expected date of discharge: 06/23/23 Attending physician: Monie Rodriguez Primary care physician: Stated None - Discharge Diagnosis(es) (1) Encounter for induction of labor Current Visit: Yes Status: Resolved (2) Status post primary low transverse section Current Visit: No Status: Resolved (3) Vaginal after delivery Current Visit: Yes Status: Acute Hospital Course: She presented for induction of labor. She underwent a normal vaginal delivery. course has been uneventful. She denies nausea, vomiting, chest pain, shortness of breath or calf pain. Patient will be discharged home day #1 in stable condition to follow-up with me in 6 weeks. Plan - Discharge Summary New Discharge Prescriptions: New Ibuprofen [Motrin] 600 mg PO Q6HR PRN #30 tab PRN Reason: Mild Pain Or Fever >= 100.5 No Action Vvp-Ytsi-Cskrn Acid [-U Capsule (formulary)] 1 cap PO DAILY Discharge Medication List Ptp-Psah-Pnmyx Acid [-U Capsule (formulary)] 1 cap PO DAILY 11/13/18 [History] Ibuprofen [Motrin] 600 mg PO Q6HR PRN #30 tab 06/23/23 [Rx] Follow up Appointment(s)/Referral(s): Monie Rodriguez DO [Doctor of Osteopathic Medicine] - 08/02/23 3:45 pm Discharge Disposition: HOME SELF-CARE
[2023-06-23] MEDS: SENNOSIDES-DOCUSATE SODIUM 1 EACH TAB PO SCH (10:12)
[2023-06-23 12:08] VITALS: BP 104/69; PULSE 75; RESP 20; TEMP 98.8
--- NOTE | 2023-06-28 12:27 | CDI ---
Documentation Clarification Form Date: 06/28/2023 12:18:00 PM From: Antonella Freire Admit Date: 06/22/2023 06:05:00 AM Patient Name: Tiana Benedict Visit Number: [id number] Discharge Date: 06/23/2023 03:10:00 PM ATTENTION: The Clinical Documentation Specialists (CDI) and [facility] Coding Staff appreciate your assistance in clarifying documentation. Please respond to the clarification below the line at the bottom and electronically sign. The CDI & [facility] Coding staff will review the response and follow-up if needed. Please note: Queries are made part of the Legal Health Record. If you have any questions, please contact the author of this message via ITS. Dr. Monie Rodriguez Your patient has a hemoglobin/hematocrit level of 12.3 and 37.4 on 06/22/23, and 9.7 and 28.8 on 06/23/23. Please clarify if there is an additional diagnosis and/or clinical significance related to these lab values. History/Risk Factors: patient is a 33 year old , 38 weeks , presented for elevated BPs in the office and Hx of GDM and LTCS. Clinical indicators: patient presented for IOL, 38 weeks gestation. Patient had AROM, pitocin, and an epidural. Delivered a viable female vaginally, 2nd degree midline laceration was repaired. EBL 200ml. course has been uneventful, with no complaints of nausea, vomiting, chest pain, SOB, or calf pain. Discharge to home. Treatment: AROM, Pitocin, Epidural, discharged on Ibuprofen and PNV. Is there an additional diagnosis and/or clinical significance related to the above lab result/information: [ ] Acute blood loss anemia [ ] No additional diagnosis/Not clinically significant [ ] Unable to determine [ ] Other, please specify MTDD
--- NOTE | 2023-07-05 13:48 | CDI ---
Documentation Clarification Form Date: 07/05/2023 01:33:10 PM From: Antonella Freire Admit Date: 06/22/2023 06:05:00 AM Patient Name: Tiana Benedict Visit Number: [id number] Discharge Date: 06/23/2023 03:10:00 PM ATTENTION: The Clinical Documentation Specialists (CDI) and [facility] Coding Staff appreciate your assistance in clarifying documentation. Please respond to the clarification below the line at the bottom and electronically sign. The CDI & [facility] Coding staff will review the response and follow-up if needed. Please note: Queries are made part of the Legal Health Record. If you have any questions, please contact the author of this message via ITS. Dr. Monie Rodriguez Your patient has a hemoglobin/hematocrit level of 12.3 and 37.4 on 06/22/23, and 9.7 and 28.8 on 06/23/23. Please clarify if there is an additional diagnosis and/or clinical significance related to these lab values. History/Risk Factors: patient is a 33 year old , 38 weeks , presented for elevated BPs in the office and hx of GDM and LTCS Clinical indicators: patient presented for IOL, 38 weeks gestation. Patient had AROM, Pitocin, and epidural. Delivered viable female infant vaginally, 2nd degree midline laceration was repaired. EBL 200ml. Post- course has been uneventful, with no complaints of nausea, vomiting, chest pain, SOB, or calf pain. Discharged to home. Treatment: AROM, Pitocin, Epidural, discharged on ibuprofen and PNV. Is there an additional diagnosis and/or clinical significance related to the above lab result/information: [ ] Acute blood loss anemia [ ] No additional diagnosis/Not clinically significant [ ] Unable to determine [ ] Other, please specify MTDD
== END 2023-06-23 15:10 | disposition home or self-care (01) | DRG 807 ==
LOC: 4FBP 06:05
PROVIDERS: ADMIT Obstetrics & Gynecology; ATTEND Obstetrics & Gynecology
PROC: 10E0XZZ Delivery of Products of Conception, External Approach (ICD-10-PCS; principal; 2023-06-22)
PROC: 0KQM0ZZ Repair Perineum Muscle, Open Approach (ICD-10-PCS; 2023-06-22)
PROC: 10907ZC Drainage of Amniotic Fluid, Therapeutic from Products of Conception, Via Natural or Artificial Opening (ICD-10-PCS; 2023-06-22)
PROC: 3E0234Z Introduction of Serum, Toxoid and Vaccine into Muscle, Percutaneous Approach (ICD-10-PCS; 2023-06-22)
PROC: 3E033VJ Introduction of Other Hormone into Peripheral Vein, Percutaneous Approach (ICD-10-PCS; 2023-06-22)
DX: O34.211 Maternal care for low transverse scar from previous cesarean delivery (principal); O70.1 Second degree perineal laceration during delivery; Z86.32 Personal history of gestational diabetes; Z87.891 Personal history of nicotine dependence; Z3A.38 38 weeks gestation of pregnancy; Z37.0 Single live birth
CPT/HCPCS: 85025; 85461; 86850; 86900; 86901

== ENCOUNTER 2023-08-18 07:56 | Day surgery (SDC) | payer BC ==
[2023-08-15 14:40] VITALS: BMI 39.3
--- NOTE | 2023-08-17 16:23 | P.HPOB ---
History of Present Illness H&P Date: 08/17/23 Chief Complaint: family planning 33 year old presents for laparoscopic tubal ligation. Review of Systems All systems: negative Constitutional: Denies chills, Denies fever Eyes: denies blurred vision, denies pain Ears, nose, mouth and throat: Denies headache, Denies sore throat Cardiovascular: Denies chest pain, Denies shortness of breath Respiratory: Denies cough Gastrointestinal: Denies abdominal pain, Denies diarrhea, Denies nausea, Denies vomiting Genitourinary: Denies dysuria, Denies hematuria Musculoskeletal: Denies myalgias Integumentary: Denies pruritus, Denies rash Neurological: Denies numbness, Denies weakness Psychiatric: Denies anxiety, Denies depression Endocrine: Denies fatigue, Denies weight change Past Medical History Past Medical History: No Reported History Additional Past Medical History / Comment(s): Obstetric history: She's had one t ermination and one spontaneous . This is her third . She's had care with Dr. Oliveira. Blood type is O-, antibodies negative, rubella nonimmune, hepatitis B-, HIV negative, RPR nonreactive, GBS unknown. Her gestational diabetes has been controlled with diet. She's been seeing maternal medicine and getting regular ultrasounds and NSTs. History of Any Multi-Drug Resistant Organisms: None Reported Past Surgical History: Section Additional Past Surgical History / Comment(s): . tubes in ears Past Anesthesia/Blood Transfusion Reactions: No Reported Reaction Smoking Status: Former smoker - Past Family History Mother History Unknown: Yes Family Medical History: Thyroid Disorder Medications and Allergies Home Medications Medication Instructions Recorded Confirmed Type No Known Home Medications 08/15/23 08/15/23 History Allergies Allergy/AdvReac Type Severity Reaction Status Date / Time No Known Allergies Allergy Verified 08/15/23 14:16 Exam Osteopathic Statement: *. No significant issues noted on an osteopathic structural exam other than those noted in the History and Physical/Consult. HEart: RRR Lungs: CTAB Abdomen: soft, nontender Extremeties: neg alina's Assessment and Plan (1) Family planning Status: Acute Code(s): Z30.09 - ENCOUNTER FOR OTH GENERAL CNSL AND ADVICE ON CONTRACEPTION SNOMED Code(s): 591172950 Plan: 1. laparoscopic tubal ligation
[~2023-08-18 07:56] MED LIST: DEXAMETHASONE SOD PHOSPHATE 4 MG/ML 1 ML VIAL IV ONE; HYDROmorphone 0.5 MG/0.5 ML SYRINGE IVP PRN; LACTATED RINGERS 1,000 ML IV SCH; ONDANSETRON 4 MG/2 ML VIAL IVP ONE; Pre Op ABX Message 1 EACH MISC MISCELLANE ONE
[2023-08-18] MEDS ORDERED: ONDANSETRON 4 MG/2 ML VIAL IVP ONE (08:28)
[2023-08-18] MEDS ORDERED: DEXAMETHASONE SOD PHOSPHATE 4 MG/ML 1 ML VIAL IVP ONE (08:29)
[2023-08-18] MEDS ORDERED: MIDAZOLAM 2 MG/2 ML VIAL ONE (09:03)
[2023-08-18] MEDS ORDERED: ROCURONIUM 10 MG/ML (5 ML VIAL) IV ONE (09:03)
[2023-08-18] MEDS ORDERED: fentaNYL (PF) 50 MCG/ML 2 ML AMP ONE (09:03)
[2023-08-18] MEDS ORDERED: SUCCINYLCHOLINE CHLORIDE 200 MG/10 ML VIAL IV ONE (09:03)
[2023-08-18] MEDS ORDERED: GLYCOPYRROLATE 0.2 MG/ML 2 ML VIAL ONE (09:03)
[2023-08-18] MEDS ORDERED: KETOROLAC 15 MG/ML 1 ML VIAL ONE (09:03)
[2023-08-18] MEDS ORDERED: NEOSTIGMINE 1 MG/ML 10 ML VIAL ONE (09:03)
[2023-08-18] MEDS ORDERED: LIDOCAINE 1% INJ 10MG/ML (20 ML MDV) ONE (09:03)
[2023-08-18] MEDS ORDERED: PROPOFOL 10 MG/ML 20 ML VIAL IV ONE (09:03)
[2023-08-18] MEDS ORDERED: HYDROmorphone (PF) 1 MG/ML ONE (09:03)
[2023-08-18] MEDS ORDERED: BUPIVACAINE (PF) 0.25% 30 ML VIAL SQ ONE ×2 (09:21→09:35)
[2023-08-18] MEDS ORDERED: LACTATED RINGERS 1,000 ML IV ONE (09:35)
[2023-08-18 10:09] VITALS: TEMP 97.7
[2023-08-18 10:50] VITALS: RESP 18
[2023-08-18 11:10] VITALS: BP 100/60; PULSE 78
--- NOTE | 2023-08-19 07:58 | P.OP ---
Date of Procedure: 08/18/23 Preoperative Diagnosis: 1. Family planning Postoperative Diagnosis: 1. Family planning Procedure(s) Performed: Laparoscopic tubal ligation Anesthesia: GRAEME Surgeon: Monie Rodriguez Estimated Blood Loss (ml): 3 IV fluids (ml): 500 Urine output (ml): 30 Pathology: none sent Condition: stable Disposition: PACU Operative Findings: Normal uterus, tubes, ovaries. Description of Procedure: Patient was taken to the operating room where general anesthesia was obtained without difficulty. She was prepped and draped in normal sterile fashion in the dorsal lithotomy position, legs placed in the Miguel stirrups. Bladder drained of all urine. [place] speculum placed in the vagina and the anterior lip the cervix was grasped with single-tooth tenaculum. The uterus is sounded to 7 cm and the kroner manipulator was placed. Attention was then turned to the abdomen and gloves were changed. A 10 mm infraumbilical incision was made the scalpel and 10 mm optical trocar was placed under direct visualization. A 5 mm suprapubic Incision was made and a 5 mm optical trocar was placed under direct visualization. Survey of the pelvis revealed normal uterus tubes and ovaries. The left fallopian tube was grasped with a Kleppinger and fulgurated 2-3 cm on this side in the ampullar portion. The right fallopian tube was grasped with a Kleppinger and fulgurated 2-3 cm in the ampullar portion. All instruments were then removed from the abdomen and vagina. The 10 mm infraumbilical incision was closed with 0 Vicryl and the fascial layer and then 4-0 Vicryl in a subcuticular fashion. The 5 mm incision was closed with 4-0 Vicryl in a subcuticular fashion. Patient tolerated procedure well, sponge and instrument counts correct 2 and she was taken to recovery room in stable condition.
== END 2023-08-18 11:08 | disposition home or self-care (01) ==
LOC: OR 07:56
PROVIDERS: ATTEND Obstetrics & Gynecology
DX: Z30.2 Encounter for sterilization (principal); E66.01 Morbid (severe) obesity due to excess calories; Z68.39 Body mass index [BMI] 39.0-39.9, adult; Z87.891 Personal history of nicotine dependence
CPT/HCPCS: 81025; 58670; J2250; J0330; J1100; J2710; J2405; J2001; J3010; J1170; J1885; J2704; J0665

== ENCOUNTER 2024-03-09 18:26 | Emergency (ER) | payer BC ==
--- NOTE | 2024-03-09 19:25 | ED ---
Back Pain HPI - General Chief Complaint: Back Pain/Injury Stated Complaint: Lower back pain Time Seen by Provider: 03/09/24 19:24 Source: patient Limitations: no limitations - History of Present Illness Initial Comments: 33-year-old female presenting with chief complaint of back pain. Patient states that she strained her lower back a few days ago and is now having pain on the l eft side. She was seen at her chiropractor for this pain. They obtained x-rays which showed no fracture. States that she returned to the chiropractor and could not tolerate adjustment due to her pain. She was then seen at urgent care where she received Toradol. She got little to no relief from this and was advised to report to the ER for further evaluation. No loss of bowel or bladder control or saddle paresthesia. No radiculopathy. - Related Data Previous Rx's Medication Instructions Recorded Cyclobenzaprine [Flexeril] 10 mg PO TID PRN #15 tab 03/10/24 Cyclobenzaprine [Flexeril] 10 mg PO TID PRN #15 tab 03/10/24 Allergies Allergy/AdvReac Type Severity Reaction Status Date / Time No Known Allergies Allergy Verified 08/18/23 08:19 Review of Systems ROS Statement: Those systems with pertinent positive or pertinent negative responses have been documented in the HPI. ROS Other: All systems not noted in ROS Statement are negative. Past Medical History Past Medical History: No Reported History Additional Past Medical History / Comment(s): Obstetric history: She's had one termination and one spontaneous . This is her third . She's had care with Dr. Oliveira. Blood type is O-, antibodies negative, rubella nonimmune, hepatitis B-, HIV negative, RPR nonreactive, GBS unknown. Her gestational diabetes has been controlled with diet. She's been seeing maternal medicine and getting regular ultrasounds and NSTs. History of Any Multi-Drug Resistant Organisms: None Reported Past Surgical History: Section Additional Past Surgical History / Comment(s): . tubes in ears Past Anesthesia/Blood Transfusion Reactions: No Reported Reaction Past Psychological History: No Psychological Hx Reported Smoking Status: Former smoker Past Alcohol Use History: None Reported Past Drug Use History: None Reported - Past Family History Mother History Unknown: Yes Family Medical History: Thyroid Disorder General Exam - General Exam Comments Initial Comments: Visual Physical Exam Vital signs reviewed General: Well-appearing, nontoxic, no acute distress. Head: Normocephalic, atraumatic Eyes: PERRLA, EOMI ENT: Airway patent Chest: Nonlabored breathing Skin: No visual rash, normal skin tone Neuro: Alert and oriented 3 Musculoskeletal: No gross abnormalities Limitations: no limitations General appearance: alert, in no apparent distress Head exam: Present: atraumatic, normocephalic Eye exam: Present: normal appearance, EOMI Neck exam: Present: normal inspection. Absent: meningismus Respiratory exam: Absent: respiratory distress Back exam: Present: normal inspection, paraspinal tenderness Neurological exam: Present: alert, oriented X3 Psychiatric exam: Present: normal affect, normal mood Skin exam: Present: warm, dry Course Vital Signs 03/09/24 03/10/24 18:54 00:50 Temperature 99.0 F 97.8 F Pulse Rate 111 H 89 Respiratory 20 18 Rate Blood Pressure 114/78 128/79 O2 Sat by Pulse 97 99 Oximetry Medical Decision Making - Medical Decision Making I performed the quick note portion of this visit, electronically signed Carmelo Rea PA-C Was pt. sent in by a medical professional or institution ([facility], [facility], urgent care, hospital, or skilled nursing...) When possible be specific @ -No Did you speak to anyone other than the patient for history (EMS, parent, family, police, friend...)? What history was obtained from this source @ -No Did you review nursing and triage notes (agree or disagree)? Why? @ -I reviewed and agree with nursing and triage notes Were old charts reviewed (outside hosp., previous admission, EMS record, old EKG, old radiological studies, urgent care reports/EKG's, skilled nursing records)? Report findings @ -No old charts were reviewed Differential Diagnosis (chest pain, altered mental status, abdominal pain women, abdominal pain men, vaginal bleeding, weakness, fever, dyspnea, syncope, headache, dizziness, GI bleed, back pain, seizure, CVA, palpatations, mental health, musculoskeletal)? @ - [facility] Differential Back Pain: Strain, zoster, cauda equina syndrome, epidural abscess, vertebral osteomyelitis, discitis, fracture, subluxation, disc herniation, DJD, spinal stenosis, dissection, AAA, pancreatitis, peptic ulcer disease, pyelonephritis, kidney stone this is not meant to be an all-inclusive list. EKG interpreted by me (3pts min.). @ -As above X-rays interpreted by me (1pt min.). @ -None done CT interpreted by me (1pt min.). @ -CT shows no acute fracture or subluxation of the lumbar spine U/S interpreted by me (1pt. min.). @ -None done What testing was considered but not performed or refused? (CT, X-rays, U/S, labs)? Why? @ -None What meds were considered but not given or refused? Why? @ -None Did you discuss the management of the patient with other professionals (professionals i.e. , PA, [employer], lab, RT, psych nurse, 7th grade social studies teacher, floor press operator, teacher, property disposal officer, patient case coordinator)? Give summary @ -No Was smoking cessation discussed for >3mins.? @ -No Was critical care preformed (if so, how long)? @ -No Were there social determinants of health that impacted care today? How? (Homelessness, low income, unemployed, alcoholism, drug addiction, transportation, low edu. Level, literacy, decrease access to med. care, correction, rehab)? @ -No Was there de-escalation of care discussed even if they declined (Discuss DNR or withdrawal of care, Hospice)? DNR status @ -No What co-morbidities impacted this encounter? (DM, HTN, Smoking, COPD, CAD, Cancer, CVA, ARF, Chemo, Hep., AIDS, mental health diagnosis, sleep apnea, morbid obesity)? @ -None Was patient admitted / discharged? Hospital course, mention meds given and route, prescriptions, significant lab abnormalities, going to OR and other pertinent info. @ -33-year-old female presenting with chief complaint of back pain. Patient strained her back. No red flag symptoms. She was given pain medication and felt little to no relief. Shared decision-making was utilized, patient requesting further imaging. CT shows no significant canal stenosis or evidence of fracture. Patient is educated on today's findings and instructed to follow- up with PCP and orthopedics. Discharged home. Follow-up with PCP. Report back to ER with any new or worsening symptoms. Discussed return parameters and answered all questions. Patient conveyed verbal understanding and agreed to the plan. I discussed this case in detail with my attending Dr. Hyatt Undiagnosed new problem with uncertain prognosis? @ -No Drug Therapy requiring intensive monitoring for toxicity (Heparin, Nitro, Insulin, Cardizem)? @ -No Were any procedures done? @ -No Diagnosis/symptom? @ -Mechanical back pain Acute, or Chronic, or Acute on Chronic? @ -Acute Uncomplicated (without systemic symptoms) or Complicated (systemic symptoms)? @ -Uncomplicated Side effects of treatment? @ -No Exacerbation, Progression, or Severe Exacerbation? @ -No Poses a threat to life or bodily function? How? (Chest pain, [place], [place], pneumonia, PE, COPD, DKA, ARF, appy, cholecystitis, CVA, Diverticulitis, Homicidal, Suicidal, threat to staff... and all critical care pts) @ -Low likelihood Disposition Clinical Impression: Mechanical back pain Disposition: HOME SELF-CARE Condition: Good Instructions (If sedation given, give patient instructions): Acute Low Back Pain (ED) Additional Instructions: Follow-up with PCP. Report back to ER with any new or worsening symptoms. Prescriptions: Cyclobenzaprine [Flexeril] 10 mg PO TID PRN #15 tab PRN Reason: Spasms Cyclobenzaprine [Flexeril] 10 mg PO TID PRN #15 tab PRN Reason: Spasms Is patient prescribed a controlled substance at d/c from ED?: No Referrals: David Woods MD [Primary Care Provider] - 1-2 days Arcadio Stevens DO [Doctor of Osteopathic Medicine] - 1-2 days Time of Disposition: 00:35
[2024-03-09] MEDS: HYDROmorphone 1 MG/ML 1 ML SYRINGE IM STA (21:18)
[2024-03-09] MEDS: LIDOCAINE 4% PATCH TOPICAL ONE (21:19)
--- NOTE | 2024-03-10 00:22 | CT ---
EXAM: CT Lumbar Spine Without Intravenous Contrast CLINICAL HISTORY: ITS.REASON CT Reason: low back injury TECHNIQUE: Axial computed tomography images of the lumbar spine without intravenous contrast. CTDI is 54.8 mGy and DLP is 1745.6 mGy-cm. This CT exam was performed using one or more of the following dose reduction techniques: automated exposure control, adjustment of the mA and/or kV according to patient size, and/or use of iterative reconstruction technique. COMPARISON: No relevant prior studies available. FINDINGS: The vertebral body heights are maintained. The lumbar lordosis is preserved. There is no spondylolisthesis. The posterior elements are maintained, without evidence of acute fracture. The pedicles are intact. There is no spinal canal or foraminal stenosis. The visualized intra-abdominal contents are grossly unremarkable. IMPRESSION: No acute fracture or subluxation of the lumbar spine.
[2024-03-10] MEDS: ORPHENADRINE 30 MG/ML 2 ML VIAL IM STA (00:35)
[2024-03-10] MEDS: CYCLOBENZAPRINE 10MG STARTER 3 TAB BTL PO STA (00:48)
[2024-03-10 01:16] VITALS: BP 128/79; PULSE 89; RESP 18; TEMP 97.8
== END 2024-03-10 00:52 | disposition home or self-care (01) ==
LOC: EC 18:26
DX: M54.9 Dorsalgia, unspecified (principal); Z87.891 Personal history of nicotine dependence
CPT/HCPCS: 72131; 99284; 96372; J1170